=== PATIENT | female | born 1935 | race Caucasian/White ===

== ENCOUNTER 2018-07-31 09:03 | Inpatient (IN) | payer MEDICARE, OTHER ==
[~2018-07-31] VITALS: Ht 165.1 cm; Wt 72.7 kg
--- NOTE | ~2018-07-31 | CON ---
[facility] [address] [place] [address] CONSULTATION Name: ROSALBA CRUZ Room: [address] IN [place].#: [id number] Admission: 07/31/18 Attend Phys: Chepe Samuel MD Discharge: Date of : 39 Report #: [id number] THIS REPORT FOR: //name// CC: Chepe Delacruz HISTORY OF PRESENT ILLNESS: This is an 82-year-old female patient who was seen by me for seizures. The patient is unable to provide any history. She is not oriented and her memory is poor. Apparently that is her baseline according to the daughter. According to the daughter, this patient lives with her and she has been diagnosed with dementia. It looks like the dementia is advanced. She goes to a neurologist, Dr. De La Cruz. She is on medication for dementia. She also had a seizure. According to the daughter, the patient had seizure when the daughter was a little girl. She had this spell where her eyes rolled upward. It is not clear what her blood pressure and pulse was. It looks like there was urinary incontinence. They did workup in the Emergency Room. She takes Keppra 500 b.i.d. She also takes gabapentin, but the daughter did not know why she takes that. She is also on duloxetine. REVIEW OF SYSTEMS: Her 14-point review of system was carried out and it looks like the biggest problem she has is severe Alzheimer's disease. She also has fever. She requires 24-hour supervision and this is all the history I can get from 14-point review of system. I do not get much history about any recent change in any symptom related to eye, ENT, cardiac, respiratory, GI, , musculoskeletal, constitutional, dermatological, hematological, psychiatric, throat. PAST MEDICAL HISTORY: Positive for seizure, which looks like it is longstanding, but is controlled because the last seizure may have been more than a year ago. FAMILY HISTORY: Negative for early age strokes. SOCIAL HISTORY: She lives with the daughter and does not look like she drinks alcohol. PHYSICAL EXAMINATION: The patient's examination is limited. She does not know what month it is. She does not know what hospital she is in. She does not know who the president is. Daughter say usually she does not know that either. Cranial nerve examination was attempted. It is difficult to carry out because of the patient's poor cooperation, but I do not see any focality. She moves both sides. She did not cooperate with sensation, reflexes or tone. She does not understand much instruction for cerebellar sign because of the same reason. I cannot look at the fundus. She is moderately built individual who does not have any dysmorphic features of eyes, ears and face. Her vision and hearing looks adequate. She has no thyroid mass. She is not having any cardiac problems. Cardiac examination is unremarkable. No respiratory difficulty or [facility] [address] [place] [address] CONSULTATION Name: ROSALBA CRUZ Room: [address] IN [facility]#: [id number] Admission: 07/31/18 Attend Phys: Chepe Samuel MD Discharge: Date of : 39 Report #: [id number] rhonchi was noted. Blood pressure is 137/63, respirations 14, pulse is 73, temperature is 97.9. LABORATORY DATA: Indicate white count of 3.8. Imaging studies were reviewed. Her MRI was reviewed and CT scan was reviewed and none of them showed any acute changes. IMPRESSION: 1. Possible recurrence of seizures. 2. Advanced dementia. 3. Severely abnormal, but chronic changes on MRI. RECOMMENDATIONS: 1. I will increase her Keppra to 750 b.i.d. 2. I will check TSH, vitamin B12. 3. Main management is going to be supportive. 4. She needs 24-hour supervision. 5. After the discharge, she will follow up with her neurologist. Thank you very much for this referral. By: [id number] Bassett MD /aditya
[2018-07-31 09:08] VITALS: BP 124/78
[2018-07-31 09:25] LABS: ABSOLUTE LYMPHOCYTES 0.7 thou/uL (0.8-5.3); ABSOLUTE MONOCYTES 0.4 thou/uL (0.0-1.2); ABSOLUTE NEUTROPHILS 4.8 thou/uL (1.6-8.1); BASOPHILS 0.3 %; EOSINOPHILS 0.2 %; HEMATOCRIT 40.9 % (37.0-47.0); HEMOGLOBIN 14.1 gm/dL (12.0-15.0); LYMPHOCYTES 10.9 %; MCH 33.4 pg (26.0-34.0); MCHC 34.4 g/dL (28.0-37.0); MCV 97.1 fL (80.0-100.0); MONOCYTES 7.1 %; MPV 8.6 fl. (7.2-11.1); NUCLEATED RBCS 0 /100WBC; PLATELET COUNT* 164 thou/uL (150-400); POLYS 81.5 %; RBC 4.21 mil/uL (4.20-5.00); RDW-CV 12.4 % (10.5-14.5)
[2018-07-31] MEDS ORDERED: ARICEPT10 MG PO (09:33)
[2018-07-31 09:34] LABS: ANION GAP 8 mmol/L (7-16); BUN 21 mg/dL (7-18); CALCIUM 8.9 mg/dL (8.5-10.1); CHLORIDE 103 mmol/L (98-107); CO2 27 mmol/L (21-32); CREATININE 0.8 mg/dL (0.6-1.3); GLUCOSE 141 mg/dL (70-99); POTASSIUM 3.4 mmol/L (3.5-5.1); SODIUM 138 mmol/L (136-145)
[2018-07-31] MEDS ORDERED: NEURONTIN 300M300 M2 PO (09:34)
[2018-07-31] MEDS ORDERED: SEIZURE MEDICATION PO (09:34)
[2018-07-31] MEDS ORDERED: MELOXICAM7.5 MG PO (09:35)
[2018-07-31] MEDS ORDERED: SYNTHROID50 MCG PO (09:35)
[2018-07-31] MEDS ORDERED: CYMBALTA30 MG PO (09:35)
[2018-07-31 09:41] LABS: ALBUMIN 3.3 g/dL (3.4-5.0); ALKALINE PHOSPHATASE 63 U/L (46-116); LIPASE 462 U/L (73-393); SGOT 22 U/L (15-37); SGPT 29 U/L (30-65); TOTAL BILIRUBIN 0.3 mg/dL (<0.1-1.0); TOTAL PROTEIN 6.8 g/dL (6.4-8.2); TROPONIN-I LEVEL <0.06 ng/mL (<0.06)
[2018-07-31 10:18] LABS: URINE BILIRUBIN NEGATIVE (Negative); URINE BLOOD NEGATIVE (Negative); URINE CLARITY CLEAR; URINE COLOR YELLOW; URINE GLUCOSE-RANDOM NEGATIVE (Negative); URINE KETONES NEGATIVE (Negative); URINE LEUKOCYTES-REFLEX NEGATIVE (Negative); URINE NITRITE-REFLEX NEGATIVE (Negative); URINE PROTEIN 1+ (Negative); URINE SPECIFIC GRAVITY >= 1.030 (1.005-1.030); URINE UROBILINOGEN 0.2 E.U./dl (0.2-1.0)
[2018-07-31] MEDS ORDERED: KEPPRA 500 MG500 M1 PO (10:34)
--- NOTE | 2018-07-31 15:03 | NUR ---
NO CHANGE IN [facility] AT THIS TIME, SCORE 8 FROM PREVIOUS ASSESSMENT
[2018-07-31 15:22] VITALS: BP 110/57
--- NOTE | 2018-07-31 15:47 | EKG ---
[place] [address] ELECTROCARDIOGRAM REPORT Name: ROSALBA CRUZ Room: [place] [address] ADM IN [facility].#: [id number] Admission: 07/31/18 Attend Phys: Chepe Samuel MD Discharge: Date of : 39 Report #: [id number] THIS REPORT FOR: //name// [facility] ED Test Date: 2018-07-31 Test Time: 09:18:18 Pat Name: ROSALBA NANCY Department: Room: [facility] Gender: F Social Science Research Assistant: VANESA : 1935 Requested By: Latrell Arreguin Order Number: [id number] MD: Edward Ledbetter Measurements Intervals [place] Rate: 66 P: 11 MO: 324 QRS: -11 QRSD: 86 T: 143 QT: 427 QTc: 448 Interpretive Statements Sinus rhythm Prolonged MO interval LVH with secondary repolarization abnormality No previous ECG available for comparison Electronically Signed On 07-31-2018 15:47:05 OIL SPRAYER by Edward Ledbetter [email or web address] <ELECTRONICALLY SIGNED> By: Edward Ledbetter MD, [facility] 07/31/18 1547 7 7 Edward Ledbetter MD, FAC /EPI
[2018-07-31 18:20] VITALS: BP 110/57
--- NOTE | 2018-07-31 18:57 | NUR ---
SOLOMONNET ARRIVED AT ROOM AT 18:40. ORIENTED TO ROOM WITH DAUGHTER PRESENT. PATINET AOX1 BUT WILL FOLLOW COMMANDS WHEN REPEATED. PATINET VOIDED PER BEDPAN LARGE VOLUME OF DARK YELLOW URINE, ABSENT OF AND SEDIMENT OR FOUL ODERS. CALLED TO OBTAIN ORDERS. HOURLY ROUNDING FOR PATINET SAFETY.
[2018-07-31 19:00] VITALS: BP 149/61
[2018-08-01] VITALS: BP 124/49
--- NOTE | 2018-08-01 01:33 | NUR ---
TRANSFER FROM ED AT 1840. RECIEVED REPORT AND ASSUMED CARE AT 1900. ALLERGIST/IMMUNOLOGIST IN PLACE. PULSE JOHN, OTHER THAN THAT VITAL SIGNS STABLE. PT UP WITH ASSIST X 1. NO C/O PAIN AT THIS TIME. ASSESSMENT COMPLETED AND DISCUSSED PLAN OF CARE WITH DAUGHTER, THEY UNDERSTAND. BED LOCKED, ALARM ON AND CALL LIGHT WITHIN REACH. FALL PRECAUTIONS IN PLACE. HOURLY ROUNDING DONE AND ALL NEEDS MET. WILL CONTINUE TO MONITOR.
[2018-08-01 02:10] LABS: GLYCOHEMOGLOBIN (HGB A1C) 5.4 % (4.8-5.6)
[2018-08-01 04:00] VITALS: BP 135/50
[2018-08-01 06:05] LABS: ABSOLUTE EOSINOPHILS 0.1 thou/uL (0.0-0.7); ABSOLUTE MONOCYTES 0.5 thou/uL (0.0-1.2); ABSOLUTE NEUTROPHILS 2.2 thou/uL (1.6-8.1); BASOPHILS 0.6 %; EOSINOPHILS 2.4 %; LYMPHOCYTES 26.4 %; MCH 33.8 pg (26.0-34.0); MCHC 34.2 g/dL (28.0-37.0); MCV 98.8 fL (80.0-100.0); MONOCYTES 12.8 %; MPV 9.1 fl. (7.2-11.1); NUCLEATED RBCS 0 /100WBC; PLATELET COUNT* 133 thou/uL (150-400); POLYS 57.8 %; RBC 3.54 mil/uL (4.20-5.00); RDW-CV 12.7 % (10.5-14.5); WBC 3.8 thou/uL (4.0-11.0)
[2018-08-01 06:24] LABS: CHOLESTEROL 145 mg/dL (<200); HDL CHOLESTEROL 56 mg/dL (>40); LDL CHOLESTEROL 70 mg/dL (<100); TC:HDL 2.6 Ratio (Not establshd); TRIGLYCERIDE 98 mg/dL (<150); VLDL 20 mg/dL (<40)
[2018-08-01 06:25] LABS: SERUM ASSESSMENT Clear
[2018-08-01 06:56] LABS: CALCIUM 8.6 mg/dL (8.5-10.1); CREATININE 0.6 mg/dL (0.6-1.3); POTASSIUM 3.6 mmol/L (3.5-5.1)
[2018-08-01 08:00] VITALS: BP 137/63
--- NOTE | 2018-08-01 14:50 | 2DMMODE ---
[place] [address] 2 D/M-MODE ECHOCARDIOGRAM Name: ROSALBA CRUZ Room: [address] IN [facility]#: [id number] Admission: 07/31/18 Attend Phys: Chepe Samuel, Discharge: Date of : 39 Date of Service: 08/01/18 1449 Report #: [id number] THIS REPORT FOR: //name// APPROVED REPORT Study performed: 08/01/2018 10:10:25 EXAM: Comprehensive 2D, Doppler, and color-flow Echocardiogram Patient Location: In-Patient Room #: [facility] Status: routine BSA: 1.82 HR: 70 bpm BP: 135/50 mmHg Rhythm: NSR Other Information Study Quality: Good Indications CVA/TIA Echo Enhancing Agent Indication: Rule out Shunt Agent(s) / Amount(s) Used: Agitated Saline 10 cc 2D Dimensions IVSd: 11.62 (7-11mm) LVOT Diam: 18.96 (18-24mm) LVDd: 36.91 mm PWd: 10.40 (7-11mm) Ascending Ao: 36.65 (22-36mm) LVDs: 21.37 (25-40mm) Aortic Root: 29.32 mm Volumes Left Atrial Volume (Systole) LA ESV Index: 19.20 mL/m2 Aortic Valve AoV Peak Raji.: 1.55 m/s AO Peak Gr.: 9.64 mmHg LVOT Max P.30 mmHg AO Mean Gr.: 6.14 mmHg LVOT Mean P.28 mmHg LVOT Max V: 1.52 m/s AO V2 VTI: 33.90 cm LVOT Mean V: 1.08 m/s ROSHNI (VTI): 2.92 cm2 LVOT V1 VTI: 35.06 [place] [address] 2 D/M-MODE ECHOCARDIOGRAM Name: ROSALBA CRUZ Room: [address] IN ..#: [id number] Admission: 07/31/18 Attend Phys: Chepe Samuel, Discharge: Date of : 39 Date of Service: 08/01/18 1449 Report #: [id number] Mitral Valve E/A Ratio: 0.80 MV Decel. Time: 296.25 ms MV E Max Raji.: 0.80 m/s MV PHT: 85.91 ms MVA (PHT): 2.56 cm2 TDI E/Lateral E': 6.67 E/Medial E': 8.89 Medial E' Raji.: 0.09 m/s Lateral E' Raji.: 0.12 m/s Pulmonary Valve PV Peak Raji.: 1.25 m/s PV Peak Gr.: 6.25 mmHg Tricuspid Valve RAP Estimate: 5.00 mmHg TR Peak Gr.: 21.80 mmHg RVSP: 26.00 mmHg PA Pressure: 26.00 mmHg Left Ventricle The left ventricle is normal size. There is normal LV segmental wall motion. There is normal left ventricular wall thickness. Left ventricular systolic function is normal. The left ventricular ejection fraction is within the normal range. LVEF is 65-70%. Grade I - abnormal relaxation pattern. Right Ventricle The right ventricle is normal size. The right ventricular systolic function is normal. Atria The left atrium size is normal. Interatrial septum is intact without evidence of ASD or PFO. The right atrium size is normal. Aortic Valve The aortic valve is normal in structure. No aortic regurgitation is present. There is no aortic valvular stenosis. Mitral Valve The mitral valve is normal in structure. Mild mitral regurgitation. No evidence of mitral valve stenosis. Tricuspid Valve The tricuspid valve is normal in structure. Trace tricuspid regurgitation. [place] [address] 2 D/M-MODE ECHOCARDIOGRAM Name: ROSALBA CRUZ Room: [address] [place] [facility].#: [id number] Admission: 07/31/18 Attend Phys: Chepe Samuel, Discharge: Date of : 39 Date of Service: 08/01/18 1449 Report #: [id number] Pulmonic Valve The pulmonary valve is normal in structure. Trace pulmonic regurgitation. Great Vessels The aortic root is normal in size. IVC is normal in size and collapses >50% with inspiration. Pericardium There is no pericardial effusion. <Conclusion> LVEF is 65-70%. Interatrial septum is intact without evidence of ASD or PFO. <ELECTRONICALLY SIGNED> By: Edward Ledbetter MD, [facility] 08/01/18 1449 1449 1449 Edward Ledbetter MD, FACC /INF
[2018-08-01 15:39] VITALS: BP 108/60
--- NOTE | 2018-08-01 15:42 | NUR ---
CM spoke with Pt's dtr. Per dtr Pt resides at [facility]. No DME. Pt has a paid caregiver through [facility] that is there from 10am-8pm. Hx of HH. No hx of skilled. Goal is to return to [facility] at dc, dtr to transport.
--- NOTE | 2018-08-01 18:56 | NUR ---
PATINET RESTING IN BED. UP WITH STANDBY ASSIT TO BATHROOM. AOX1 AND CONFUSED. EEG COMPLETD AND PATINET SEEN BY NEUROLOGY. EXPECTED DISCHARGE TOMORROW.
[2018-08-01 20:00] VITALS: BP 145/58
[2018-08-02] VITALS: BP 146/71
[2018-08-02 04:00] VITALS: BP 131/73
--- NOTE | 2018-08-02 05:47 | NUR ---
PT CARE ASSUMED AT 2200. SAT MAINTAINED IN RA. ALERT AND ORIENTED TO HERSELF. CALL LIGHT WITHIN REACH AND BED IN LOW POSITION. PT WAS ANXIOUS, TRYING TO GET OUT OF THE BED, INFORMED DR. [place] GOT ORDER FOR XANAX, GIVEN AND CHARTED. DENIES SOB AND PAIN. HOURLY ROUNDING DONE FOR PT SAFETY.
[2018-08-02 08:15] VITALS: BP 157/76
--- NOTE | 2018-08-02 09:45 | NUR ---
REPORT RECEIVED FROM BAND SAWYER RN. ALL QUESITONS ANSWERED. DENIES PAIN, NAUSEA AND SHORTNESS OF AIR. SLIGHLY DROWSY THIS MORNING BUT EASILY AROUSED. ANSWERS QUESTIONS APPROPIRATELY. AXOX1. ASSESSMENT CHARTED. BED IN LOWEST POSITION, CALL LIGHT IN REACH. CARDIAC MONTIOR IN PLACE.
[2018-08-02 11:53] VITALS: BP 141/66
[2018-08-02 13:51] VITALS: BP 141/66
[2018-08-02] MEDS ORDERED: KEPPRA 500 MG500 M1 PO (15:29)
[2018-08-02] MEDS ORDERED: MIRALAX17 GM PO (15:37)
--- NOTE | 2018-08-02 15:43 | NUR ---
PATIENT D/C TO [facility] WITH DAUGHTER. IV D/C. DISCHARGE PACKET GIVEN TO DAUGHTER WITH SCRIPT IN IT. TAKEN BY WHEELCHAIR TO CAR WITH ALL BELONGINGS.
--- NOTE | 2018-08-02 17:31 | NUR ---
I have reviewed the documentation by MALACHI KANG from TODAY and I concur with it. ANYA GALINDO
== END 2018-08-02 16:00 | disposition home or self-care (01) | DRG 100 ==
LOC: M.ERS 09:03 → M.2W 11:22 → M.TBA-ER 11:22 → M.2W 18:21
PROVIDERS: Emergency Medicine Emergency Medical Services; ADMIT Internal Medicine
DX: R56.9 Unspecified convulsions (principal); G93.41 Metabolic encephalopathy; E86.0 Dehydration; G30.9 Alzheimer's disease, unspecified; F02.80 Dementia in other diseases classified elsewhere, unspecified severity, without behavioral disturbance, psychotic disturbance, mood disturbance, and anxiety; R32 Unspecified urinary incontinence; W06.XXXA Fall from bed, initial encounter; Y93.89 Activity, other specified; Y92.122 Bedroom in nursing home as the place of occurrence of the external cause; Y99.8 Other external cause status; Z79.899 Other long term (current) drug therapy